=== PATIENT | male | born 1955 | race Caucasian/White ===

== ENCOUNTER 2017-12-17 16:20 | Inpatient (IN) ==
[2017-12-17] MEDS ORDERED: HYDROmorphone 2 MG/1 ML VIAL IV STA (16:53)
[2017-12-17] MEDS ORDERED: ONDANSETRON 4 MG/2 ML VIAL IV ONE (16:53)
[2017-12-17] MEDS ORDERED: PROMETHAZINE 25 MG/1 ML VIAL IM PRN (17:02)
[2017-12-17] MEDS ORDERED: ACETAMINOPHEN 325 MG TABLET PO PRN (17:02)
[2017-12-17] MEDS ORDERED: ONDANSETRON 4 MG/2 ML VIAL IV PRN (17:02)
[2017-12-17] MEDS ORDERED: ONDANSETRON 4 MG/2 ML VIAL ONE (17:26)
[2017-12-17] MEDS ORDERED: HYDROmorphone 2 MG/1 ML VIAL ONE (17:26)
[2017-12-17] MEDS: LACTATED RINGERS 1,000 ML IV SCH (18:32)
[2017-12-17] MEDS: MORPHINE 2 MG/1 ML SYRINGE IV PRN (21:23)
[2017-12-18] MEDS: MORPHINE 2 MG/1 ML SYRINGE IV PRN ×5 (01:34→22:15)
[2017-12-18] MEDS: LACTATED RINGERS 1,000 ML IV SCH ×3 (01:36→17:05)
[2017-12-18] MEDS: ALBUTEROL 2.5 MG/3 ML NEB RESP TX SCH ×3 (02:03→15:17)
[2017-12-18 06:00] LABS: Basophils % 0.3 % (0.0-0.8); Eosinophils # 0.1 10*3/uL (0.0-0.87); Eosinophils % 1.2 % (0.00-10.9); Hematocrit 35.4 VOL% (42.0-52.0); Hemoglobin 12.4 GM/DL (14.0-18.0); Immature Granulocytes % 0.6 %; Immature Granulocytes Absolute 0.04 #; Lymphocytes # 1.4 10*3/uL (1.4-4.0); Mean Corpuscular Hemoglobin 30 PG (27-34); Mean Corpuscular Volume 84.1 FL (87-102); Mean Platelet Volume 9.8 FL (9.6-12.0); Monocytes # 0.4 10*3/uL (0.11-0.8); Monocytes % 6.5 % (1.7-12.7); Neutrophils # 4.7 10*3/uL (1.4-7.4); Neutrophils % 70.4 % (38.7-73.9); Platelet Count 112 T/CUMM (130-400); Red Blood Count 4.21 MC/CUMM (3.8-5.5); Red Cell Distribution Width 15.2 % (9.3-17.3); White Blood Count 6.6 T/CUMM (4-12)
[2017-12-18 06:18] LABS: Calcium 8.3 MG/DL (8.5-10.1); Potassium 3.5 MMOL/L (3.5-5.1)
[2017-12-18] MEDS: ARFORMOTEROL 15 MCG/2 ML NEB RESP TX SCH ×2 (07:41→20:34)
[2017-12-18] MEDS ORDERED: BISACODYL 10 MG SUPP RECTAL PRN (08:01)
[2017-12-18] MEDS: PANTOPRAZOLE 40 MG TABLET PO SCH (08:23)
[2017-12-18] MEDS: DOCUSATE SODIUM 100 MG CAPSULE PO SCH ×2 (08:23→22:09)
[2017-12-18] MEDS: ENOXAPARIN 40 MG/0.4 ML SYRINGE SUBCUT SCH (12:07)
[2017-12-18] MEDS ORDERED: CELECOXIB 200 MG CAPSULE PO PRN (13:44)
[2017-12-18] MEDS ORDERED: ALBUTEROL 2.5 MG/3 ML NEB RESP TX PRN (13:44)
[2017-12-18] MEDS ORDERED: DEXTROSE 50% 25 GM/50 ML VIAL IV PRN (13:46)
[2017-12-18] MEDS ORDERED: GLUCAGON 1 MG VIAL IM PRN (13:46)
[2017-12-18] MEDS: INSULIN REGULAR 100 UNIT/ML SUBCUT SCH ×2 (16:10→22:09)
[2017-12-18] MEDS: metFORMIN 500 MG TABLET PO SCH (16:36)
[2017-12-18] MEDS: BUDESONIDE 0.5 MG/2 ML NEB RESP TX SCH (20:34)
[2017-12-18] MEDS: IPRATROPIUM 500 MCG/2.5 ML NEB RESP TX SCH (20:34)
[2017-12-18] MEDS ORDERED: ARFORMOTEROL 15 MCG/2 ML NEB RESP TX SCH (21:00)
[2017-12-18] MEDS ORDERED: DOCUSATE SODIUM 100 MG CAPSULE PO SCH (21:00)
[2017-12-19] MEDS: ALBUTEROL 2.5 MG/3 ML NEB RESP TX SCH ×3 (01:08→14:31)
[2017-12-19] MEDS: MORPHINE 2 MG/1 ML SYRINGE IV PRN (05:40)
[2017-12-19] MEDS ORDERED: LEVOTHYROXINE 75 MCG TABLET PO SCH (06:30)
[2017-12-19] MEDS: ARFORMOTEROL 15 MCG/2 ML NEB RESP TX SCH (06:59)
[2017-12-19] MEDS: BUDESONIDE 0.5 MG/2 ML NEB RESP TX SCH (06:59)
[2017-12-19] MEDS: IPRATROPIUM 500 MCG/2.5 ML NEB RESP TX SCH (06:59)
[2017-12-19] MEDS: LACTATED RINGERS 1,000 ML IV SCH (07:12)
[2017-12-19] MEDS ORDERED: OMEPRAZOLE PO SCH (07:30)
[2017-12-19] MEDS: metFORMIN 500 MG TABLET PO SCH (07:47)
[2017-12-19] MEDS: ENOXAPARIN 40 MG/0.4 ML SYRINGE SUBCUT SCH (08:47)
[2017-12-19] MEDS: INSULIN REGULAR 100 UNIT/ML SUBCUT SCH ×2 (08:47→11:52)
[2017-12-19] MEDS: PANTOPRAZOLE 40 MG TABLET PO SCH (08:47)
[2017-12-19] MEDS: DOCUSATE SODIUM 100 MG CAPSULE PO SCH (08:47)
[2017-12-19] MEDS ORDERED: THEOPHYLLINE ER 300 MG TABLET PO SCH (09:00)
[2017-12-19] MEDS ORDERED: LOSARTAN/HCTZ 50-12.5 MG TABLET PO SCH (09:00)
[2017-12-19 16:19] VITALS: BP 141/70
[2017-12-25] MEDS ORDERED: ERGOCALCIFEROL 50,000 UNIT CAPSULE PO SCH (09:00)
== END 2017-12-19 17:45 | disposition home or self-care (01) | DRG 389 ==
LOC: EDBD → EDUNIT# → N.ED 16:20 → N.EDINP 17:02 → N.2E 18:09
PROVIDERS: ADMIT Surgery; ATTEND Surgery